=== PATIENT | female | born 1980 | race African-American/Black ===

== ENCOUNTER 2017-05-06 12:44 | Emergency (ER) | payer OTHER ==
[~2017-05-06] VITALS: Ht 170.2 cm; Wt 81.7 kg
[~2017-05-06 12:44] MED LIST: FLEXERIL PO; NORCO 5-325 TA1 EACH PO
[2017-05-06] MEDS ORDERED: ONDANSETRON HCL4 M2 PO (13:32)
[2017-05-06] MEDS ORDERED: PREDNISONE 20 M20 MG PO (13:32)
[2017-05-06] MEDS ORDERED: PENICILLIN V P500 MG PO (13:32)
[2017-05-06 15:36] VITALS: BP 122/101
== END 2017-05-06 15:37 | disposition home or self-care (01) ==
LOC: ER 12:44
DX: J02.0 Streptococcal pharyngitis (principal); R51 Headache; R11.2 Nausea with vomiting, unspecified; Z86.718 Personal history of other venous thrombosis and embolism

== ENCOUNTER 2017-08-04 15:09 | Inpatient (IN) | payer OTHER ==
[~2017-08-04] VITALS: Ht 170.2 cm; Wt 117.7 kg
--- NOTE | ~2017-08-04 | HC ---
[facility] [place] [address] CONSULTATION Name: SHELBY WALKER Room #: 416-P [facility] IN M.R.#: [id number] Admission: 08/04/17 Attend Phys: Femi Phillips MD Discharge: 08/06/17 Date of : 78 Report #: [id number] THIS REPORT FOR: //name// CC: BETTY physician/PCP Femi Phillips DATE OF SERVICE: 08/04/2017 HISTORY OF PRESENT ILLNESS: This is a 37-year-old female patient who was evaluated by me for any neurological etiology for the pain behind left eye. This started this morning. She does not have a history of migraine. At one time, looks like her eye was bloodshot. Nurses have noticed some ptosis, but when I examined it was better. She was also having low potassium. REVIEW OF SYSTEMS: Indicate that this patient does not have a history of migraine. She does not have a history of stroke as I understand from the nurses and the patient. They checked intraocular downstairs and they were unremarkable. She does not believe she is under stress. She is getting . She had some stomach issues in the past, she does not know what the diagnosis was. That was the relevant 14-point review of system. PAST MEDICAL HISTORY: Negative for migraine. FAMILY HISTORY: Negative for any early age stroke. PHYSICAL EXAMINATION: Indicate that she is alert, responsive, able to follow simple and complex command. Her speech looks unremarkable. Cranial nerve examination does look ptosis, but on both sides, but pupils are not dilated. Strength looks symmetrical. There is no meningeal sign. She had complained of some neck pain. Cardiac examination is unremarkable. Respiratory examination is unremarkable. Blood pressure has never been that high and the highest was 150/96. LABORATORY DATA: A CT was reviewed and that was unremarkable as per study I can pull out the film. IMPRESSION: This patient presented with eye pain. They have also noticed ptosis. We need to exclude the possibility of an aneurysm in this patient. If that is excluded, then we can consider the possibility of migraine since glaucoma has been excluded. This is only as per history. She does have low potassium, but that will not explain all her symptoms. RECOMMENDATION: I had a long talk with the patient. I told her that we should go ahead and do a CT angio of the head and neck tonight. I will order that. I discussed the procedure, its indication, potential complication, and alternatives. If she has an aneurysm, then we will manage accordingly. If not, [facility] [address] [place] [address] CONSULTATION Name: SHELBY WALKER Room #: 416-P [facility] IN [facility].#: [id number] Admission: 08/04/17 Attend Phys: Femi Phillips MD Discharge: 08/06/17 Date of : 78 Report #: [id number] then we will await the MRI and sed rate in the morning and go from there. All of it was discussed with the patient and the patient wants to follow this plan. Thank you very much for this referral. <ELECTRONICALLY SIGNED> By: Eleazar Santoyo MD 08/06/17 2208 2318 1439 Eleazar Santoyo MD /nt
--- NOTE | ~2017-08-04 | 2DMMODE ---
[facility] [address] [place] [address] 2 D/M-MODE ECHOCARDIOGRAM Name: SHELBY WALKER Room #: 353-P [facility] IN M.R.#: [id number] Admission: 08/04/17 Attend Phys: Femi Phillips, Discharge: Date of : 78 Date of Service: 08/05/17 0857 Report #: [id number] THIS REPORT FOR: //name// APPROVED REPORT Study performed: 08/05/2017 08:18:07 EXAM: Comprehensive 2D, Doppler, and color-flow Echocardiogram Patient Location: Echo lab Room #: 353 Status: routine BSA: 2.26 HR: 86 bpm BP: 152/97 mmHg Rhythm: NSR Other Information Study Quality: Adequate Indications Left arm weakness, HTN Echo Enhancing Agent Indication: Rule out Shunt Agent(s) / Amount(s) Used: Agitated Saline 6 cc 2D Dimensions RVDd: 38.95 mm LVEF(%): 71.78 (>50%) IVSd: 9.59 (7-11mm) LVOT Diam: 21.45 (18-24mm) LVDd: 45.99 mm PWd: 9.42 (7-11mm) Ascending Ao: 28.93 (22-36mm) LVDs: 27.18 (25-40mm) Aortic Root: 30.74 mm Hansen's LVEF: 71.78 % Volumes Left Atrial Volume (Systole) Single Plane 4CH: 29.65 mL Single Plane 2CH: 49.40 mL LA ESV Index: 18.00 mL/m2 Aortic Valve AoV Peak Chay.: 1.39 m/s AO Peak Gr.: 7.73 mmHg LVOT Max P.21 mmHg LVOT Max V: 1.03 m/s NÉSTOR Vmax: 2.66 cm2 [facility] [place] [address] 2 D/M-MODE ECHOCARDIOGRAM Name: SHELBY WALKER Room #: 353-P [facility] IN M.R.#: [id number] Admission: 08/04/17 Attend Phys: Femi Phillpis, Discharge: Date of : 78 Date of Service: 08/05/17 0857 Report #: [id number] Mitral Valve E/A Ratio: 1.1 MV Decel. Time: 161.50 ms MV E Max Chay.: 0.71 m/s MV A Chay.: 0.63 m/s MV PHT: 46.84 ms IVRT: 65.74 ms Pulmonary Valve PV Peak Chay.: 1.24 m/s PV Peak Gr.: 6.16 mmHg Pulmonary Vein P Vein S: 0.40 m/s P Vein D: 0.40 m/s P Vein S/D Ratio: 1.00 Tricuspid Valve TR Peak Chay.: 2.93 m/s RAP Estimate: 5.00 mmHg TR Peak Gr.: 34.25 mmHg PA Pressure: 39.00 mmHg Left Ventricle The left ventricle is normal size. There is normal LV segmental wall motion. There is normal left ventricular wall thickness. Left ventricular systolic function is normal. LVEF is 60-65%. Moderate diastolic dysfunction is present (pseudonormal filling). Right Ventricle The right ventricle is normal size. The right ventricular systolic function is normal. Atria The left atrium size is normal. No shunting noted by contrast bubble injection. Right atrium is mildly dilated. Aortic Valve The aortic valve is normal in structure. No aortic regurgitation is present. There is no aortic valvular stenosis. Mitral Valve The mitral valve is normal in structure. There is no mitral valve regurgitation noted. No evidence of mitral valve stenosis. Tricuspid Valve The tricuspid valve is normal in structure. Moderate tricuspid [facility] [address] [place] [address] 2 D/M-MODE ECHOCARDIOGRAM Name: SHELBY WALKER Room #: 353-P [facility] IN [facility]#: [id number] Admission: 08/04/17 Attend Phys: Femi Phillips, Discharge: Date of : 78 Date of Service: 08/05/17 0857 Report #: [id number] regurgitation. Estimated PAP is 40mmHg. Pulmonic Valve The pulmonary valve is normal in structure. Trace pulmonic regurgitation. Great Vessels The aortic root is normal in size. The ascending aorta is normal in size. IVC is normal in size and collapses >50% with inspiration. Pericardium There is no pericardial effusion. <Conclusion> The left ventricle is normal size. LVEF is 60-65%. The aortic valve is normal in structure. The mitral valve is normal in structure. The tricuspid valve is normal in structure. Moderate tricuspid regurgitation. Estimated PAP is 40mmHg. The pulmonary valve is normal in structure. Trace pulmonic regurgitation. There is no pericardial effusion. No shunting noted by contrast bubble injection. <ELECTRONICALLY SIGNED> By: Saroj Thomson MD 08/05/17 0857 0857 0857 Saroj Thomson MD /INF
--- NOTE | ~2017-08-04 | EKG ---
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
[~2017-08-04 15:09] MED LIST changes: +ONDANSETRON HCL4 M2 PO; +PENICILLIN V P500 MG PO; +PREDNISONE 20 M20 MG PO
[2017-08-04 15:17] VITALS: BP 150/96
[2017-08-04] MEDS ORDERED: [UNRECOGNIZED DRUG - REMARK] (15:23)
[2017-08-04 16:23] LABS: URINE BILIRUBIN NEGATIVE (Negative); URINE BLOOD NEGATIVE (Negative); URINE CLARITY SL CLOUDY; URINE COLOR YELLOW; URINE GLUCOSE-RANDOM* NEGATIVE (Negative); URINE KETONES NEGATIVE (Negative); URINE LEUKOCYTES NEGATIVE (Negative); URINE NITRITE NEGATIVE (Negative); URINE PROTEIN (DIPSTICK) NEGATIVE (Negative); URINE UROBILINOGEN 0.2 E.U./dl (0.2-1.0)
[2017-08-04 17:03] LABS: ABSOLUTE NEUTROPHILS 2.8 thou/uL (1.4-8.2); BASOPHILS 0.9 % (0.0-2.0); EOSINOPHILS 2.2 % (0.0-3.0); HEMATOCRIT 37.8 % (37.0-47.0); HEMOGLOBIN 13.3 gm/dL (12.0-15.0); LYMPHOCYTES 41.5 % (24.0-44.0); MCH 33.2 pg (26.0-34.0); MCHC 35.2 g/dL (28.0-37.0); MCV 94.2 fL (80.0-100.0); PLATELET COUNT 284 thou/uL (150-400); POLYS 46.4 % (36.0-66.0); RBC 4.02 mil/uL (4.20-5.00); RDW 11.6 % (10.5-14.5); WBC 5.9 thou/uL (4.0-11.0)
[2017-08-04 17:12] LABS: CALCIUM 8.8 mg/dL (8.5-10.1); CREATININE 0.7 mg/dL (0.6-1.0)
[2017-08-04 17:14] LABS: POTASSIUM 2.5 mmol/L (3.5-5.1)
[2017-08-04 17:19] LABS: PROTIME 10.2 Seconds (9.3-11.4)
[2017-08-04 17:22] LABS: TOTAL BILIRUBIN 0.3 mg/dL (<0.1-1.0)
[2017-08-04 17:23] LABS: ALBUMIN 3.5 g/dL (3.4-5.0); TOTAL PROTEIN 7.7 g/dL (6.4-8.2)
[2017-08-04 17:52] LABS: MAGNESIUM 1.9 mg/dL (1.8-2.4); PHOSPHORUS 3.6 mg/dL (2.5-4.9)
[2017-08-04 18:04] VITALS: BP 121/75
[2017-08-04 18:25] VITALS: BP 124/84
[2017-08-04 18:38] VITALS: BP 140/86
[2017-08-04 23:49] VITALS: BP 135/87
[2017-08-05 04:11] VITALS: BP 150/90
[2017-08-05 05:05] LABS: HEMATOCRIT 36.9 % (37.0-47.0); HEMOGLOBIN 12.5 gm/dL (12.0-15.0); MCH 32.6 pg (26.0-34.0); MCHC 33.9 g/dL (28.0-37.0); RBC 3.84 mil/uL (4.20-5.00); RDW 11.9 % (10.5-14.5); WBC 5.3 thou/uL (4.0-11.0)
[2017-08-05 05:06] LABS: CALCIUM 8.2 mg/dL (8.5-10.1); CREATININE 0.7 mg/dL (0.6-1.0); MAGNESIUM 1.8 mg/dL (1.8-2.4); POTASSIUM 3.4 mmol/L (3.5-5.1)
[2017-08-05 05:36] LABS: TSH 2.792 uIU/mL (0.358-3.740)
[2017-08-05 07:46] VITALS: BP 152/97
[2017-08-05 11:43] VITALS: BP 127/70
[2017-08-05 18:30] LABS: MAGNESIUM 2.1 mg/dL (1.8-2.4); POTASSIUM 3.4 mmol/L (3.5-5.1)
[2017-08-05 20:10] VITALS: BP 136/88
[2017-08-06] VITALS (7 sets, daily range): BP systolic 115–137; BP diastolic 56–98
[2017-08-06 06:50] LABS: CALCIUM 8.2 mg/dL (8.5-10.1); CREATININE 0.5 mg/dL (0.6-1.0); MAGNESIUM 2.2 mg/dL (1.8-2.4)
[2017-08-06 06:51] LABS: POTASSIUM 4.7 mmol/L (3.5-5.1)
[2017-08-06 07:13] LABS: ABSOLUTE NEUTROPHILS 2.6 thou/uL (1.4-8.2); BASOPHILS 0.6 % (0.0-2.0); EOSINOPHILS 2.2 % (0.0-3.0); HEMATOCRIT 38.6 % (37.0-47.0); MCH 32.7 pg (26.0-34.0); MCHC 33.6 g/dL (28.0-37.0); MCV 97.4 fL (80.0-100.0); MONOCYTES 10.1 % (1.0-8.0); PLATELET COUNT 257 thou/uL (150-400); POLYS 48.1 % (36.0-66.0); RBC 3.97 mil/uL (4.20-5.00); RDW 12.3 % (10.5-14.5); WBC 5.3 thou/uL (4.0-11.0)
[2017-08-06 10:06] LABS: APTT 27.3 Seconds (24.5-32.8); PROTIME 9.8 Seconds (9.3-11.4)
[2017-08-06 13:24] LABS: CSF GLUCOSE 60 mg/dL (40-70); CSF PROTEIN 28 mg/dL (15-45)
[2017-08-06 13:34] LABS: VOLUME 11 ml
[2017-08-06 13:36] LABS: CSF WBC 1 /mm3 (0-10)
[2017-08-06 13:40] LABS: CSF RBC 370 /mm3
[2017-08-06] MEDS ORDERED: LISINOPRIL5 MG PO (15:06)
[2017-08-06] MEDS ORDERED: ASPIRIN81 M2 PO (15:06)
[2017-08-08 19:07] LABS: ANA INTERPRETATION Negative (())
== END 2017-08-06 18:04 | disposition home or self-care (01) | DRG 641 ==
LOC: ER 15:09 → 4N 17:27 → EROBS 17:27 → 3W 18:25 → 4N 08-06 04:03 → ENTRNSPT 08-06 17:58 → 4N 08-06 18:04
PROVIDERS: Hospitalist; Internal Medicine; Physician Assistant; Psychiatry & Neurology Neuromuscular Medicine
DX: E87.6 Hypokalemia (principal); I50.30 Unspecified diastolic (congestive) heart failure; H02.402 Unspecified ptosis of left eyelid; G93.2 Benign intracranial hypertension; E86.0 Dehydration; I11.0 Hypertensive heart disease with heart failure; T50.2X5A Adverse effect of carbonic-anhydrase inhibitors, benzothiadiazides and other diuretics, initial encounter; Z86.718 Personal history of other venous thrombosis and embolism; Y92.89 Other specified places as the place of occurrence of the external cause
CPT/HCPCS: 10879

== ENCOUNTER 2017-09-01 08:11 | Emergency (ER) | payer OTHER ==
[~2017-09-01] VITALS: Ht 170.2 cm; Wt 108.9 kg
[~2017-09-01 08:11] MED LIST changes: +ASPIRIN81 M2 PO; +LISINOPRIL5 MG PO; +[UNRECOGNIZED DRUG - REMARK]
[2017-09-01 09:08] LABS: ABSOLUTE NEUTROPHILS 1.5 thou/uL (1.4-8.2); EOSINOPHILS 3.3 % (0.0-3.0); HEMATOCRIT 39.4 % (37.0-47.0); HEMOGLOBIN 13.3 gm/dL (12.0-15.0); LYMPHOCYTES 45.2 % (24.0-44.0); MCH 32.9 pg (26.0-34.0); MCHC 33.8 g/dL (28.0-37.0); MCV 97.1 fL (80.0-100.0); MONOCYTES 9.6 % (1.0-8.0); PLATELET COUNT 339 thou/uL (150-400); POLYS 40.9 % (36.0-66.0); RBC 4.06 mil/uL (4.20-5.00); WBC 3.7 thou/uL (4.0-11.0)
[2017-09-01 09:14] LABS: ANION GAP 10 mmol/L (7-16); BUN 9 mg/dL (7-18); CALCIUM 8.5 mg/dL (8.5-10.1); CHLORIDE 106 mmol/L (98-107); CO2 23 mmol/L (21-32); CREATININE 0.7 mg/dL (0.6-1.0); GLUCOSE 115 mg/dL (74-106); POTASSIUM 3.5 mmol/L (3.5-5.1); SODIUM 139 mmol/L (136-145)
[2017-09-01 09:20] LABS: ALBUMIN 3.2 g/dL (3.4-5.0); DIRECT BILIRUBIN < 0.1 mg/dL (<0.1-0.3); LIPASE 86 U/L (73-393); SGOT 14 U/L (15-37); SGPT 16 U/L (30-65); TOTAL BILIRUBIN 0.2 mg/dL (<0.1-1.0); TOTAL PROTEIN 7.3 g/dL (6.4-8.2)
[2017-09-01] MEDS ORDERED: KEFLEX500 M1 PO (10:00)
[2017-09-01] MEDS ORDERED: ZOFRAN ODT4 MG PO (10:00)
== END 2017-09-01 13:15 | disposition home or self-care (01) ==
LOC: ER 08:11
PROVIDERS: Emergency Medicine
DX: L02.31 Cutaneous abscess of buttock (principal); R11.2 Nausea with vomiting, unspecified; R10.9 Unspecified abdominal pain; Z86.718 Personal history of other venous thrombosis and embolism

== ENCOUNTER 2017-09-26 22:12 | Emergency (ER) | payer OTHER ==
[~2017-09-26] VITALS: Ht 170.2 cm; Wt 108.9 kg
[~2017-09-26 22:12] MED LIST changes: +KEFLEX500 M1 PO; +ZOFRAN ODT4 MG PO
[2017-09-26 23:25] LABS: URINE BILIRUBIN NEGATIVE (Negative); URINE BLOOD NEGATIVE (Negative); URINE COLOR YELLOW; URINE GLUCOSE-RANDOM* NEGATIVE (Negative); URINE KETONES NEGATIVE (Negative); URINE LEUKOCYTES-REFLEX NEGATIVE (Negative); URINE NITRITE-REFLEX NEGATIVE (Negative); URINE PROTEIN (DIPSTICK) NEGATIVE (Negative); URINE SPECIFIC GRAVITY 1.015 (1.005-1.035); URINE UROBILINOGEN 0.2 E.U./dl (0.2-1.0)
[2017-09-26 23:30] LABS: URINE CLARITY SL CLOUDY
[2017-09-27 00:23] LABS: HEMATOCRIT 38.3 % (37.0-47.0); HEMOGLOBIN 13.3 gm/dL (12.0-15.0); MCH 33.5 pg (26.0-34.0); MCHC 34.7 g/dL (28.0-37.0); MCV 96.6 fL (80.0-100.0); PLATELET COUNT 299 thou/uL (150-400); RBC 3.97 mil/uL (4.20-5.00); RDW 12.7 % (10.5-14.5); WBC 5.4 thou/uL (4.0-11.0)
[2017-09-27 00:36] LABS: CALCIUM 8.4 mg/dL (8.5-10.1); CREATININE 0.7 mg/dL (0.6-1.0); POTASSIUM 3.4 mmol/L (3.5-5.1)
[2017-09-27 00:42] LABS: ALBUMIN 3.5 g/dL (3.4-5.0); TOTAL BILIRUBIN 0.3 mg/dL (<0.1-1.0); TOTAL PROTEIN 7.8 g/dL (6.4-8.2)
[2017-09-27] MEDS ORDERED: BENTYL 20 MG TA20 M1 PO (01:00)
[2017-09-27] MEDS ORDERED: NORCO 5-325 TA1 EACH PO (01:00)
[2017-09-27] MEDS ORDERED: LISINOPRIL5 MG PO (01:02)
[2017-09-27 01:16] LABS: ABSOLUTE NEUTROPHILS 1.3 thou/uL (1.4-8.2)
== END 2017-09-27 01:15 | disposition home or self-care (01) ==
LOC: ER 22:12
PROVIDERS: Emergency Medicine
DX: R10.84 Generalized abdominal pain (principal); R19.7 Diarrhea, unspecified; R51 Headache; I10 Essential (primary) hypertension

== ENCOUNTER 2017-10-24 20:50 | Emergency (ER) | payer OTHER ==
[~2017-10-24] VITALS: Ht 170.2 cm; Wt 113.4 kg
[~2017-10-24 20:50] MED LIST changes: +BENTYL 20 MG TA20 M1 PO
[2017-10-24] MEDS ORDERED: KEFLEX500 M1 PO (21:33)
[2017-10-24] MEDS ORDERED: MOBIC15 MG PO (21:33)
== END 2017-10-24 21:39 | disposition home or self-care (01) ==
LOC: ER 20:50
DX: L02.412 Cutaneous abscess of left axilla (principal); L02.411 Cutaneous abscess of right axilla; I10 Essential (primary) hypertension; Z90.2 Acquired absence of lung [part of]; Z86.718 Personal history of other venous thrombosis and embolism

== ENCOUNTER 2018-01-08 19:51 | Emergency (ER) | payer OTHER ==
[~2018-01-08] VITALS: Ht 170.2 cm; Wt 113.4 kg
[~2018-01-08 19:51] MED LIST changes: +MOBIC15 MG PO
[2018-01-08] MEDS ORDERED: TYLENOL EXTRA500 MG PO (20:08)
[2018-01-08 20:53] LABS: URINE BILIRUBIN NEGATIVE (Negative); URINE BLOOD TRACE (Negative); URINE CLARITY CLEAR; URINE COLOR YELLOW; URINE GLUCOSE-RANDOM* NEGATIVE (Negative); URINE KETONES NEGATIVE (Negative); URINE LEUKOCYTES-REFLEX NEGATIVE (Negative); URINE NITRITE-REFLEX NEGATIVE (Negative); URINE PROTEIN (DIPSTICK) NEGATIVE (Negative); URINE SPECIFIC GRAVITY >= 1.030 (1.005-1.035); URINE UROBILINOGEN 0.2 E.U./dl (0.2-1.0)
[2018-01-08 20:59] LABS: HEMATOCRIT 38.8 % (37.0-47.0); HEMOGLOBIN 13.1 gm/dL (12.0-15.0); MCH 32.5 pg (26.0-34.0); MCHC 33.7 g/dL (28.0-37.0); MCV 96.5 fL (80.0-100.0); RBC 4.02 mil/uL (4.20-5.00); RDW 12.5 % (10.5-14.5); WBC 6.1 thou/uL (4.0-11.0)
[2018-01-08 21:08] LABS: CREATININE 0.9 mg/dL (0.6-1.0); POTASSIUM 3.6 mmol/L (3.5-5.1)
[2018-01-08 21:14] LABS: ALBUMIN 3.2 g/dL (3.4-5.0); TOTAL BILIRUBIN 0.1 mg/dL (<0.1-1.0); TOTAL PROTEIN 7.5 g/dL (6.4-8.2)
== END 2018-01-08 22:09 | disposition home or self-care (01) ==
LOC: ER 19:51
PROVIDERS: Emergency Medicine; Physician Assistant
DX: R51 Headache (principal); R42 Dizziness and giddiness; I10 Essential (primary) hypertension; Z86.718 Personal history of other venous thrombosis and embolism

== ENCOUNTER 2018-02-03 18:21 | Emergency (ER) | payer OTHER ==
[~2018-02-03] VITALS: Ht 170.2 cm; Wt 119.3 kg
--- NOTE | ~2018-02-03 | EKG ---
[place] [address] [facility] [place] [address] ELECTROCARDIOGRAM REPORT Name: PERFECTOSHELBY [facility] [id number] Admission: 02/03/18 Attend Phys: Discharge: 02/03/18 Date of : 78 Report #: [id number] THIS REPORT FOR: //name// [facility] ED Test Date: 2018-02-03 Test Time: 18:24:44 Pat Name: SHELBY GROVE Department: Room: Gender: F Sap Basis: STEPHANIE : 1980 Requested By: Ursula Brewer Order Number: [id number] MD: Nilesh Mtz Measurements Intervals [place] Rate: 79 P: 28 NV: 156 QRS: 23 QRSD: 91 T: 8 QT: 370 QTc: 425 Interpretive Statements Sinus rhythm No significant abnormality Compared to ECG 08/04/2017 15:57:09 No significant changes Electronically Signed On 02-04-2018 7:56:41 CDT by Nilesh Mtz [email or web address] <ELECTRONICALLY SIGNED> By: Nilesh Mtz MD, [facility] 02/04/18 0756 1824 1824 Nilesh Mtz MD, FACC /EPI
[~2018-02-03 18:21] MED LIST changes: +TYLENOL EXTRA500 MG PO
[2018-02-03 19:35] LABS: ABSOLUTE NEUTROPHILS 2.8 thou/uL (1.4-8.2); BASOPHILS 0.8 % (0.0-2.0); EOSINOPHILS 2.9 % (0.0-3.0); HEMATOCRIT 41.4 % (37.0-47.0); HEMOGLOBIN 14.4 gm/dL (12.0-15.0); LYMPHOCYTES 46.9 % (24.0-44.0); MCH 33.2 pg (26.0-34.0); MCHC 34.7 g/dL (28.0-37.0); MCV 95.6 fL (80.0-100.0); MONOCYTES 9.2 % (1.0-8.0); PLATELET COUNT 299 thou/uL (150-400); POLYS 40.2 % (36.0-66.0); RBC 4.33 mil/uL (4.20-5.00); RDW 12.5 % (10.5-14.5)
[2018-02-03 19:39] LABS: ANION GAP 7 mmol/L (7-16); BUN 6 mg/dL (7-18); CHLORIDE 102 mmol/L (98-107); CO2 26 mmol/L (21-32); CREATININE 0.7 mg/dL (0.6-1.0); GLUCOSE 91 mg/dL (74-106); POTASSIUM 3.7 mmol/L (3.5-5.1); SODIUM 135 mmol/L (136-145)
[2018-02-03 19:47] LABS: TROPONIN-I <0.06 ng/mL (<0.06)
[2018-02-03] MEDS ORDERED: HYDROCHLOROTHIA25 M2 PO (21:27)
[2018-02-03] MEDS ORDERED: K-DUR 20 MEQ T20 MEQ PO (21:32)
== END 2018-02-03 21:50 | disposition home or self-care (01) ==
LOC: ER 18:21
PROVIDERS: Emergency Medicine
DX: R07.89 Other chest pain (principal); I10 Essential (primary) hypertension; Z86.718 Personal history of other venous thrombosis and embolism; Z86.711 Personal history of pulmonary embolism

== ENCOUNTER 2018-02-07 09:39 | Emergency (ER) | payer OTHER ==
[~2018-02-07] VITALS: Ht 170.2 cm; Wt 117.9 kg
[~2018-02-07 09:39] MED LIST changes: +HYDROCHLOROTHIA25 M2 PO; +K-DUR 20 MEQ T20 MEQ PO
[2018-02-07] MEDS ORDERED: ULTRAM 50MG TAB50 MG PO (11:03)
[2018-02-07] MEDS ORDERED: CRUTCHES MISCELL (11:04)
[2018-02-07 14:08] VITALS: BP 142/93
== END 2018-02-07 11:30 | disposition home or self-care (01) ==
LOC: ER 09:39
DX: S93.401A Sprain of unspecified ligament of right ankle, initial encounter (principal); I10 Essential (primary) hypertension; Z86.718 Personal history of other venous thrombosis and embolism; Z86.711 Personal history of pulmonary embolism; W01.0XXA Fall on same level from slipping, tripping and stumbling without subsequent striking against object, initial encounter; Y93.89 Activity, other specified; Y92.89 Other specified places as the place of occurrence of the external cause; Y99.8 Other external cause status

== ENCOUNTER 2018-02-12 18:18 | Emergency (ER) | payer OTHER ==
[~2018-02-12] VITALS: Ht 170.2 cm; Wt 115.7 kg
[~2018-02-12 18:18] MED LIST changes: +CRUTCHES MISCELL; +ULTRAM 50MG TAB50 MG PO
[2018-02-12 19:35] LABS: ABSOLUTE NEUTROPHILS 2.6 thou/uL (1.4-8.2); BASOPHILS 1.1 % (0.0-2.0); EOSINOPHILS 2.2 % (0.0-3.0); HEMATOCRIT 40.5 % (37.0-47.0); HEMOGLOBIN 13.6 gm/dL (12.0-15.0); LYMPHOCYTES 49.3 % (24.0-44.0); MCH 32.5 pg (26.0-34.0); MCHC 33.5 g/dL (28.0-37.0); MCV 96.8 fL (80.0-100.0); PLATELET COUNT 318 thou/uL (150-400); POLYS 35.4 % (36.0-66.0); RBC 4.19 mil/uL (4.20-5.00); RDW 12.6 % (10.5-14.5); WBC 7.8 thou/uL (4.0-11.0)
[2018-02-12 19:44] LABS: APTT 20.8 Seconds (24.5-32.8); CALCIUM 9.2 mg/dL (8.5-10.1); CREATININE 0.6 mg/dL (0.6-1.0)
[2018-02-12 19:49] LABS: ALBUMIN 3.2 g/dL (3.4-5.0); TOTAL BILIRUBIN 0.3 mg/dL (<0.1-1.0); TOTAL PROTEIN 7.9 g/dL (6.4-8.2)
[2018-02-12] MEDS ORDERED: PRILOSEC 20 MG20 MG PO (20:11)
[2018-02-12] MEDS ORDERED: ANUSOL-HC25 MG RECTAL (20:18)
[2018-02-12] MEDS ORDERED: TRAMADOL 50 MG50 MG PO (20:38)
[2018-02-12 20:46] VITALS: BP 114/70
== END 2018-02-12 20:46 | disposition home or self-care (01) ==
LOC: ER 18:18
PROVIDERS: Emergency Medicine
DX: K62.5 Hemorrhage of anus and rectum (principal); S93.491A Sprain of other ligament of right ankle, initial encounter; I10 Essential (primary) hypertension; Z87.11 Personal history of peptic ulcer disease; Z86.718 Personal history of other venous thrombosis and embolism; Z98.890 Other specified postprocedural states; W18.39XA Other fall on same level, initial encounter; Y92.89 Other specified places as the place of occurrence of the external cause; Y93.89 Activity, other specified; Y99.8 Other external cause status

== ENCOUNTER 2018-05-29 21:59 | Emergency (ER) | payer OTHER ==
[~2018-05-29] VITALS: Ht 170.2 cm; Wt 122.5 kg
[~2018-05-29 21:59] MED LIST changes: +ANUSOL-HC25 MG RECTAL; +PRILOSEC 20 MG20 MG PO; +TRAMADOL 50 MG50 MG PO
[2018-05-29] MEDS ORDERED: NORVASC5 MG PO (22:06)
[2018-05-29 22:37] LABS: BASOPHILS 0.6 % (0.0-2.0); EOSINOPHILS 2.2 % (0.0-3.0); HEMOGLOBIN 13.5 gm/dL (12.0-15.0); LYMPHOCYTES 42.8 % (24.0-44.0); MCH 33.2 pg (26.0-34.0); MCHC 34.6 g/dL (28.0-37.0); MONOCYTES 8.8 % (1.0-8.0); PLATELET COUNT 298 thou/uL (150-400); POLYS 45.6 % (36.0-66.0); RBC 4.06 mil/uL (4.20-5.00); RDW 12.5 % (10.5-14.5); WBC 6.5 thou/uL (4.0-11.0)
[2018-05-29 22:46] LABS: ANION GAP 11 mmol/L (7-16); BUN 10 mg/dL (7-18); CHLORIDE 102 mmol/L (98-107); CO2 26 mmol/L (21-32); CREATININE 0.7 mg/dL (0.6-1.0); GLUCOSE 116 mg/dL (74-106); POTASSIUM 3.3 mmol/L (3.5-5.1); SODIUM 139 mmol/L (136-145)
[2018-05-29 22:53] LABS: APTT 26.8 Seconds (24.5-32.8); D-DIMER 0.19 ug/mLFEU (0.19-0.50); PROTIME 10.3 Seconds (9.3-11.4)
[2018-05-29 22:54] LABS: ALBUMIN 3.2 g/dL (3.4-5.0); LIPASE 84 U/L (73-393); MAGNESIUM 1.9 mg/dL (1.8-2.4); SGOT 14 U/L (15-37); SGPT 19 U/L (30-65); TOTAL BILIRUBIN 0.2 mg/dL (<0.1-1.0); TOTAL PROTEIN 8.1 g/dL (6.4-8.2); TROPONIN-I <0.06 ng/mL (<0.06)
[2018-05-29] MEDS ORDERED: NAPROSYN500 MG PO (23:19)
[2018-05-29] MEDS ORDERED: NORFLEX100 MG PO (23:19)
[2018-05-29 23:50] VITALS: BP 137/83
--- NOTE | 2018-05-30 08:10 | EKG ---
[place] [address] [place] [address] ELECTROCARDIOGRAM REPORT Name: PERFECTOSHELBY [facility] [id number] ������������������ Admission: 05/29/18 ������������������ Attend Phys: Discharge: 05/29/18 ������������������ Date of : 78 Report #: [id number] ����������������������������������������������������������������� [id number] THIS REPORT FOR: //name// [facility] ED Test Date: 2018-05-29 Test Time: 22:15:46 Pat Name: SHELBY GROVE Department: Room: Gender: F Yard Switcher: maliaprakashvivi : 1980 Requested By: Carter Graham Order Number: [id number] MD: Nilesh Mtz Measurements Intervals [place] Rate: 76 P: 25 IN: 174 QRS: 15 QRSD: 98 T: 4 QT: 389 QTc: 438 Interpretive Statements Sinus rhythm Borderline T abnormalities, anterior leads Compared to ECG 02/03/2018 18:24:44 T-wave abnormality now present Electronically Signed On 05-30-2018 8:10:43 USER EXPERIENCE DEVELOPER by Nilesh Mtz [email or web address] ��������������������������������������������� <ELECTRONICALLY SIGNED> ���������������������������������������� By: Nilesh Mtz MD, [facility] ��������������������������������������������� 05/30/18 0810 2215 14 Nilesh Mtz MD, FACC /EPI
== END 2018-05-29 23:52 | disposition home or self-care (01) ==
LOC: ER 21:59
PROVIDERS: Emergency Medicine
DX: M43.6 Torticollis (principal); Z86.711 Personal history of pulmonary embolism; I10 Essential (primary) hypertension

== ENCOUNTER 2018-10-15 18:38 | Emergency (ER) | payer OTHER ==
[~2018-10-15] VITALS: Ht 170.2 cm; Wt 123.8 kg
[~2018-10-15 18:38] MED LIST changes: +NAPROSYN500 MG PO; +NORFLEX100 MG PO; +NORVASC5 MG PO
[2018-10-15 19:47] VITALS: BP 112/64
== END 2018-10-15 19:47 | disposition home or self-care (01) ==
LOC: ER 18:38
DX: R59.0 Localized enlarged lymph nodes (principal); I10 Essential (primary) hypertension; Z86.718 Personal history of other venous thrombosis and embolism; Z90.710 Acquired absence of both cervix and uterus

== ENCOUNTER 2019-01-31 09:46 | Emergency (ER) | payer OTHER ==
[~2019-01-31] VITALS: Ht 170.2 cm; Wt 117.9 kg
[2019-01-31 09:47] VITALS: BP 137/98
[2019-01-31] MEDS ORDERED: IBUPROFEN 800800 M1 PO (11:15)
[2019-01-31] MEDS ORDERED: NORFLEX100 MG PO (11:15)
== END 2019-01-31 11:30 | disposition home or self-care (01) ==
LOC: ER 09:46
DX: S46.912A Strain of unspecified muscle, fascia and tendon at shoulder and upper arm level, left arm, initial encounter (principal); I10 Essential (primary) hypertension; Z86.718 Personal history of other venous thrombosis and embolism; Z86.711 Personal history of pulmonary embolism; X58.XXXA Exposure to other specified factors, initial encounter; Y93.89 Activity, other specified; Y92.89 Other specified places as the place of occurrence of the external cause; Y99.8 Other external cause status

== ENCOUNTER 2019-05-06 05:58 | Day surgery (SDC) | payer OTHER ==
[~2019-05-06] VITALS: Ht 170.2 cm; Wt 121.6 kg
[~2019-05-06 05:58] MED LIST changes: +IBUPROFEN 800800 M1 PO
[2019-05-06] MEDS ORDERED: LISINOPRIL-HCT1 EAC1 PO ×2 (08:49)
[2019-05-06] MEDS ORDERED: LASIX 40 MG TAB40 MG PO ×2 (08:50)
[2019-05-06] MEDS ORDERED: LIPITOR 20 MG T20 M1 PO ×2 (08:51)
[2019-05-06 08:52] VITALS: BP 142/90
[2019-05-06 10:22] VITALS: BP 142/90
[2019-05-06] MEDS ORDERED: CYCLOBENZAPRINE10 MG PO (20:53)
--- NOTE | 2019-05-07 15:06 | O ---
[address] [address] OPERATIVE REPORT Name: SHELBY GROVE Room #: DEP [facility].#: [id number] Admission: 05/06/19 Attend Phys: Paul Kearns MD Discharge: 05/06/19 Date of : 78 Report #: [id number] THIS REPORT FOR: //name// CC: FAM unknown Paul Kearns DATE OF SERVICE: 05/06/2019 SERVICE: Orthopedics. FACILITY: [facility]. SURGEON: Paul Kearns MD COLOR CHECKER: Symone Silva NP. INDICATION FOR COLOR CHECKER: Extremity positioning, suture and arthroscope management, assistance with repair. PREOPERATIVE DIAGNOSES: 1. Work-related injury, left shoulder. 2. Left shoulder pain. 3. Left shoulder labral tear. POSTOPERATIVE DIAGNOSES: 1. Work-related injury, left shoulder. 2. Left shoulder pain. 3. Left shoulder labral tear. 4. Left shoulder articular cartilage lesion of the anterior inferior glenoid. PROCEDURES: 1. Left shoulder arthroscopic anterior labral repair. 2. Left shoulder extensive arthroscopic debridement. COMPLICATIONS: None. DRAINS: None. SPECIMENS: None. ANESTHESIA: General with regional. FINDINGS: 1. Intact humeral articular cartilage as well as rotator cuff and biceps tendon. 2. Flap tear of the anterior inferior glenoid with the articular cartilage [address] [address] OPERATIVE REPORT Name: SHELBY GROVE Room #: DEP [facility]#: [id number] Admission: 05/06/19 Attend Phys: Paul Kearns MD Discharge: 05/06/19 Date of : 78 Report #: [id number] component. This was pedunculated and was attached to the inferior glenoid and had a loose flap that was being pinched between the humeral head and glenoid. There was anterior labral tearing with synovitis present as well. POSTOPERATIVE PLAN: 3 weeks of sling immobilization followed by physical therapy for mobilization. HISTORY: The patient is a 38-year-old young lady who injured her left shoulder at work moving a piece of furniture. She presented to the office with significant pain that had failed conservative measures. She had an MRI arthrogram, which showed a flap tear of the inferior glenoid labrum with some associated articular cartilage lesions. She was indicated for surgical treatment. Risks, benefits, alternatives, and indication of surgery discussed with her in detail. Risks include but not limited to pain, bleeding, infection, injury to nerves or blood vessels, persistent pain despite surgical intervention, failure of any repairs, progression of any preexisting chondral injury, need for further surgery as well as complications related to anesthesia such as stroke, heart attack, pulmonary complications, thromboembolic disease, and . She does have a history of PE. We discussed this specifically as well as her cardiac history. PROCEDURE IN DETAIL: After left upper extremity was correctly identified in preoperative holding area as the operative extremity, the patient was taken to the operating room where general anesthesia was induced without complications. She was padded appropriately. Prophylactic antibiotics were administered at appropriate time. The patient had undergone a single shot regional nerve block by Anesthesia. She was turned into lateral decubitus position, left side up, right side down padded appropriately. Examination under anesthesia demonstrated generally a stable shoulder. There was some crepitus. Left arm was prepped and draped in standard sterile fashion. Timeout procedure performed. Standard posterior viewing portal was established. Diagnostic arthroscopy revealed the above findings. There was obviously a flap tear of the anterior labrum. A low anterior interval portal was established followed by a high interval viewing portal. We used a shaver to debride the anterior inferior posteriorly of the frayed labrum and the articular cartilage, which was in the anterior inferior quadrant and was a grade 3 with partial thickness loss of the cartilage, but there was no exposed bone. The elevator was used to mobilize the anterior labrum at the side of the tear and then the large flap tear was grasped and removed and a truncated at its base and discarded. The Mar[employer] anchor x 2 were then placed with a mattress suture type of repair to keep the knot off of the glenoid face, providing good anatomic latter day of the labral positioning. A shaver was then used to complete a debridement of the labrum and cartilage. Scope was then placed in subacromial space where a bursectomy was performed. [address] [address] OPERATIVE REPORT Name: SHELBY GROVE Room #: DEP [facility].#: [id number] Admission: 05/06/19 Attend Phys: Paul Kearns MD Discharge: 05/06/19 Date of : 78 Report #: [id number] The rotator cuff was normal as was the coracoacromial ligament. After the bursectomy was completed, final photographs were taken. Instruments were removed. Portal sites were closed. Sterile dressing was applied followed by abduction pillow sling and [employer]. The patient was awakened from anesthesia and taken to recovery room in stable condition. No complications. All counts were correct. <ELECTRONICALLY SIGNED> By: Paul Kearns MD 05/07/19 1506 0948 1004 Paul Kearns MD /nt
== END 2019-05-06 11:00 | disposition home or self-care (01) ==
LOC: OR 05:58 → TBA 06:47 → OR 11:00
DX: M25.512 Pain in left shoulder (principal); S49.92XA Unspecified injury of left shoulder and upper arm, initial encounter; S43.492A Other sprain of left shoulder joint, initial encounter; M24.112 Other articular cartilage disorders, left shoulder; I11.0 Hypertensive heart disease with heart failure; I50.30 Unspecified diastolic (congestive) heart failure; Z87.19 Personal history of other diseases of the digestive system; Z98.890 Other specified postprocedural states; Z79.899 Other long term (current) drug therapy; Z90.710 Acquired absence of both cervix and uterus; Y99.0 Civilian activity done for income or pay; Y93.89 Activity, other specified; Y92.89 Other specified places as the place of occurrence of the external cause
CPT/HCPCS: 50010; 50101; 50172; 50386; 50417; 50935; 51320; 52001; 52282; 53610; 54170; 55430; 56524; 56525; 56527; 57103; 62110; 62900; 64039; 70005

== ENCOUNTER 2019-05-06 18:33 | Emergency (ER) | payer OTHER ==
[~2019-05-06] VITALS: Ht 170.2 cm; Wt 120.2 kg
--- NOTE | ~2019-05-06 | EKG ---
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
[~2019-05-06 18:33] MED LIST changes: +LASIX 40 MG TAB40 MG PO; +LIPITOR 20 MG T20 M1 PO; +LISINOPRIL-HCT1 EAC1 PO
[2019-05-06 20:27] LABS: ABSOLUTE NEUTROPHILS 6.6 thou/uL (1.4-8.2); BASOPHILS 0.3 % (0.0-2.0); EOSINOPHILS 0.1 % (0.0-3.0); HEMATOCRIT 38.8 % (37.0-47.0); HEMOGLOBIN 12.9 gm/dL (12.0-15.0); LYMPHOCYTES 15.5 % (24.0-44.0); MCH 32.2 pg (26.0-34.0); MCHC 33.3 g/dL (28.0-37.0); MCV 96.7 fL (80.0-100.0); MONOCYTES 1.3 % (1.0-8.0); PLATELET COUNT 323 thou/uL (150-400); POLYS 82.8 % (36.0-66.0); RBC 4.01 mil/uL (4.20-5.00); RDW 12.7 % (10.5-14.5); WBC 7.9 thou/uL (4.0-11.0)
[2019-05-06 20:37] LABS: ANION GAP 6 mmol/L (7-16); BUN 5 mg/dL (7-18); CALCIUM 8.5 mg/dL (8.5-10.1); CHLORIDE 103 mmol/L (98-107); CO2 26 mmol/L (21-32); CREATININE 0.8 mg/dL (0.6-1.0); GLUCOSE 176 mg/dL (74-106); POTASSIUM 3.5 mmol/L (3.5-5.1); SODIUM 135 mmol/L (136-145)
[2019-05-06 20:47] LABS: ALBUMIN 3.3 g/dL (3.4-5.0); SGOT 13 U/L (15-37); SGPT 24 U/L (30-65); TOTAL BILIRUBIN 0.2 mg/dL (<0.1-1.0); TOTAL PROTEIN 8.2 g/dL (6.4-8.2); TROPONIN-I <0.06 ng/mL (<0.06)
[2019-05-06] MEDS ORDERED: CYCLOBENZAPRINE10 MG PO (20:53)
[2019-05-06 22:39] VITALS: BP 112/70
== END 2019-05-06 22:40 | disposition home or self-care (01) ==
LOC: ER 18:33
PROVIDERS: Student in an Organized Health Care Education/Training Program
DX: T88.59XA Other complications of anesthesia, initial encounter (principal); I10 Essential (primary) hypertension; E66.9 Obesity, unspecified; Z86.718 Personal history of other venous thrombosis and embolism; T41.45XA Adverse effect of unspecified anesthetic, initial encounter; Y92.89 Other specified places as the place of occurrence of the external cause

== ENCOUNTER 2019-05-14 01:04 | Emergency (ER) | payer OTHER ==
[~2019-05-14] VITALS: Ht 170.2 cm; Wt 120.2 kg
[~2019-05-14 01:04] MED LIST changes: +CYCLOBENZAPRINE10 MG PO
[2019-05-14] MEDS ORDERED: OXYCODONE PO (01:11)
[2019-05-14] MEDS ORDERED: MORPHINE SULFAT10 M2 PO (01:11)
[2019-05-14] MEDS ORDERED: COLACE100 MG PO (01:12)
[2019-05-14] MEDS ORDERED: ONDANSETRON HCL4 M3 PO (01:12)
[2019-05-14 02:34] LABS: CALCIUM 8.6 mg/dL (8.5-10.1); CREATININE 0.6 mg/dL (0.6-1.0); POTASSIUM 3.5 mmol/L (3.5-5.1)
[2019-05-14 02:58] LABS: ABSOLUTE NEUTROPHILS 4.3 thou/uL (1.4-8.2); BASOPHILS 0.4 % (0.0-2.0); EOSINOPHILS 1.6 % (0.0-3.0); HEMATOCRIT 37.8 % (37.0-47.0); HEMOGLOBIN 12.5 gm/dL (12.0-15.0); LYMPHOCYTES 37.9 % (24.0-44.0); MCHC 33.2 g/dL (28.0-37.0); MCV 96.5 fL (80.0-100.0); MONOCYTES 9.4 % (1.0-8.0); PLATELET COUNT 317 thou/uL (150-400); POLYS 50.7 % (36.0-66.0); RBC 3.92 mil/uL (4.20-5.00); RDW 12.4 % (10.5-14.5); WBC 8.5 thou/uL (4.0-11.0)
[2019-05-14 04:44] VITALS: BP 122/69
== END 2019-05-14 04:48 | disposition home or self-care (01) ==
LOC: ER 01:04
PROVIDERS: Emergency Medicine
DX: R42 Dizziness and giddiness (principal); R11.2 Nausea with vomiting, unspecified; I10 Essential (primary) hypertension; Z86.718 Personal history of other venous thrombosis and embolism

== ENCOUNTER 2019-07-17 10:16 | Emergency (ER) | payer OTHER ==
[~2019-07-17] VITALS: Ht 170.2 cm; Wt 120.2 kg
[~2019-07-17 10:16] MED LIST changes: +COLACE100 MG PO; +MORPHINE SULFAT10 M2 PO; +ONDANSETRON HCL4 M3 PO; +OXYCODONE PO
[2019-07-17 12:43] LABS: ABSOLUTE NEUTROPHILS 2.1 thou/uL (1.4-8.2); BASOPHILS 0.8 % (0.0-2.0); EOSINOPHILS 3.3 % (0.0-3.0); HEMATOCRIT 38.9 % (37.0-47.0); HEMOGLOBIN 13.1 gm/dL (12.0-15.0); LYMPHOCYTES 45.3 % (24.0-44.0); MCH 33.1 pg (26.0-34.0); MCHC 33.8 g/dL (28.0-37.0); MCV 97.9 fL (80.0-100.0); MONOCYTES 11.7 % (1.0-8.0); PLATELET COUNT 283 thou/uL (150-400); POLYS 38.9 % (36.0-66.0); RBC 3.97 mil/uL (4.20-5.00); RDW 12.4 % (10.5-14.5); WBC 5.3 thou/uL (4.0-11.0)
[2019-07-17 12:51] LABS: ANION GAP 10 mmol/L (7-16); BUN 10 mg/dL (7-18); CALCIUM 9.2 mg/dL (8.5-10.1); CHLORIDE 102 mmol/L (98-107); CO2 26 mmol/L (21-32); CREATININE 0.7 mg/dL (0.6-1.0); GLUCOSE 94 mg/dL (74-106); POTASSIUM 3.5 mmol/L (3.5-5.1); SODIUM 138 mmol/L (136-145)
[2019-07-17 13:01] LABS: ALBUMIN 3.4 g/dL (3.4-5.0); SGOT 13 U/L (15-37); SGPT 17 U/L (30-65); TOTAL BILIRUBIN 0.4 mg/dL (<0.1-1.0); TOTAL PROTEIN 7.9 g/dL (6.4-8.2); TROPONIN-I <0.06 ng/mL (<0.06)
[2019-07-17 13:50] VITALS: BP 125/79
--- NOTE | 2019-07-19 13:01 | EKG ---
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: [facility] : 1980 Requested By: Olinda Mae Order Number: [id number] MD: Zi Alcantara Measurements Intervals [place] Rate: 77 P: 36 ID: 175 QRS: 30 QRSD: 95 T: 27 QT: 377 QTc: 427 Interpretive Statements Sinus rhythm Consider left atrial enlargement Baseline wander in lead(s) V3 Compared to ECG 05/06/2019 18:49:07 T-wave abnormality no longer present Electronically Signed On 07-19-2019 12:59:34 CDT by Zi Alcantara [email or web address] <ELECTRONICALLY SIGNED> By: Zi Alcantara MD 07/19/19 1259 1136 1136 Zi Alcantara MD /EPI
== END 2019-07-17 13:51 | disposition home or self-care (01) ==
LOC: ER 10:16
PROVIDERS: Student in an Organized Health Care Education/Training Program
DX: R06.02 Shortness of breath (principal); R05 Cough; R07.9 Chest pain, unspecified; J02.9 Acute pharyngitis, unspecified; I10 Essential (primary) hypertension; Z03.818 Encounter for observation for suspected exposure to other biological agents ruled out; Z86.718 Personal history of other venous thrombosis and embolism; Z79.899 Other long term (current) drug therapy

== ENCOUNTER 2019-12-04 14:23 | Emergency (ER) | payer OTHER ==
[~2019-12-04] VITALS: Ht 170.2 cm; Wt 117.9 kg
[2019-12-04] MEDS ORDERED: ULTRAM50 MG PO (15:01)
[2019-12-04 15:39] LABS: ABSOLUTE NEUTROPHILS 2.2 thou/uL (1.4-8.2); BASOPHILS 0.8 % (0.0-2.0); EOSINOPHILS 2.1 % (0.0-3.0); HEMOGLOBIN 13.3 gm/dL (12.0-15.0); LYMPHOCYTES 47.5 % (24.0-44.0); MCH 33.5 pg (26.0-34.0); MCHC 34.9 g/dL (28.0-37.0); MCV 96.1 fL (80.0-100.0); MONOCYTES 10.2 % (1.0-8.0); PLATELET COUNT 288 thou/uL (150-400); POLYS 39.4 % (36.0-66.0); RBC 3.96 mil/uL (4.20-5.00); RDW 12.9 % (10.5-14.5); WBC 5.5 thou/uL (4.0-11.0)
[2019-12-04 16:03] LABS: ANION GAP 10 mmol/L (7-16); BUN 10 mg/dL (7-18); CALCIUM 8.9 mg/dL (8.5-10.1); CHLORIDE 103 mmol/L (98-107); CO2 25 mmol/L (21-32); CREATININE 0.9 mg/dL (0.6-1.0); GLUCOSE 91 mg/dL (74-106); POTASSIUM 3.4 mmol/L (3.5-5.1); SODIUM 138 mmol/L (136-145)
[2019-12-04 16:13] LABS: TROPONIN-I <0.06 ng/mL (<0.06)
--- NOTE | 2019-12-04 16:50 | EKG ---
[facility] [place] [address] ELECTROCARDIOGRAM REPORT Name: ANTONIO GROVEI Room #: [facility]#: [id number] Admission: 12/04/19 Attend Phys: Discharge: Date of : 78 Report #: [id number] THIS REPORT FOR: cc: BETTY - Blanca family physician/PCP BETTY - Blanca family physician/PCP Nilesh Mtz MD [facility] ~ THIS REPORT FOR: //name// [facility] ED Test Date: 2019-12-04 Test Time: 15:00:22 Pat Name: SHELBY GROVE Department: Room: Gender: F Medical Resident: [facility] : 1980 Requested By: Georgia Stewart Order Number: [id number] MD: Nilesh Mtz Measurements Intervals [place] Rate: 61 P: 10 [place]: 175 QRS: 17 QRSD: 100 T: 1 QT: 405 QTc: 408 Interpretive Statements Sinus rhythm Normal tracing Compared to ECG 07/17/2019 11:36:59 No significant change was found Electronically Signed On 12-04-2019 16:50:25 CDT by Nilesh Mtz [email or web address] <ELECTRONICALLY SIGNED> By: Nilesh Mtz MD, [facility] 12/04/19 1650 1500 1500 Nilesh Mtz MD, [facility] /EPI
[2019-12-04] MEDS ORDERED: HYDROCODON-ACE1 EAC7 PO (17:57)
[2019-12-04 18:44] VITALS: BP 124/55
== END 2019-12-04 18:47 | disposition home or self-care (01) ==
LOC: ER 14:23
PROVIDERS: Nurse Practitioner
DX: R10.31 Right lower quadrant pain (principal); R07.89 Other chest pain; I10 Essential (primary) hypertension; Z86.73 Personal history of transient ischemic attack (TIA), and cerebral infarction without residual deficits; Z79.899 Other long term (current) drug therapy; Z20.828 Contact with and (suspected) exposure to other viral communicable diseases

== ENCOUNTER 2020-04-02 15:33 | Emergency (ER) | payer OTHER ==
[~2020-04-02] VITALS: Ht 170.2 cm; Wt 120.2 kg
[~2020-04-02 15:33] MED LIST changes: +HYDROCODON-ACE1 EAC7 PO; +ULTRAM50 MG PO
[2020-04-02 15:45] VITALS: BP 149/91
[2020-04-02] MEDS ORDERED: ERYTHROMYCIN E3.5 G3 OPHTHALMIC (16:39)
== END 2020-04-02 16:45 | disposition home or self-care (01) ==
LOC: ER 15:33
DX: H10.9 Unspecified conjunctivitis (principal); I10 Essential (primary) hypertension; Z98.890 Other specified postprocedural states; Z86.718 Personal history of other venous thrombosis and embolism; Z79.899 Other long term (current) drug therapy

== ENCOUNTER 2021-02-14 17:56 | Emergency (ER) | payer OTHER ==
[~2021-02-14] VITALS: Ht 170.2 cm; Wt 129.3 kg
[~2021-02-14 17:56] MED LIST changes: +ERYTHROMYCIN E3.5 G3 OPHTHALMIC
[2021-02-14 18:18] LABS: ABSOLUTE NEUTROPHILS 2.2 thou/uL (1.4-8.2); HEMATOCRIT 37.4 % (37.0-47.0); HEMOGLOBIN 12.7 gm/dL (12.0-15.0); LYMPHOCYTES 48.7 % (24.0-44.0); MCH 33.3 pg (26.0-34.0); MCHC 34.1 g/dL (28.0-37.0); MCV 97.7 fL (80.0-100.0); MONOCYTES 11.3 % (1.0-8.0); PLATELET COUNT 282 thou/uL (150-400); RBC 3.83 mil/uL (4.20-5.00); RDW 12.6 % (10.5-14.5); WBC 6.2 thou/uL (4.0-11.0)
[2021-02-14 18:26] LABS: ANION GAP 5 mmol/L (7-16); BUN 11 mg/dL (7-18); CALCIUM 8.7 mg/dL (8.5-10.1); CHLORIDE 108 mmol/L (98-107); CO2 27 mmol/L (21-32); CREATININE 0.8 mg/dL (0.6-1.0); GLUCOSE 91 mg/dL (74-106); POTASSIUM 4.2 mmol/L (3.5-5.1); SODIUM 140 mmol/L (136-145)
[2021-02-14 18:36] LABS: ALBUMIN 3.3 g/dL (3.4-5.0); SGOT 16 U/L (15-37); SGPT 20 U/L (14-59); TOTAL BILIRUBIN 0.2 mg/dL (0.2-1.0); TOTAL PROTEIN 7.6 g/dL (6.4-8.2)
[2021-02-14 18:40] LABS: URINE BILIRUBIN NEGATIVE (Negative); URINE BLOOD NEGATIVE (Negative); URINE CLARITY CLEAR; URINE COLOR YELLOW; URINE GLUCOSE-RANDOM* NEGATIVE (Negative); URINE KETONES NEGATIVE (Negative); URINE LEUKOCYTES-REFLEX NEGATIVE (Negative); URINE NITRITE-REFLEX NEGATIVE (Negative); URINE PROTEIN (DIPSTICK) NEGATIVE (Negative); URINE SPECIFIC GRAVITY >= 1.030 (1.005-1.035); URINE UROBILINOGEN 0.2 E.U./dl (0.2-1.0)
[2021-02-14 19:30] VITALS: BP 138/96
--- NOTE | 2021-02-15 07:11 | EKG ---
[address] [place] [address] ELECTROCARDIOGRAM REPORT Name: SHELBY GROVE Room #: [facility]#: [id number] Admission: 02/14/21 Attend Phys: Discharge: 02/14/21 Date of : 78 Report #: [id number] [facility] ED Test Date: 2021-02-14 Test Time: 18:07:42 Pat Name: SHELBY GROVE Department: Room: Gender: F Automobile Parker: CLAUDINE : 1980 Requested By: Twin Clark Order Number: [id number] MD: Candido Adame Measurements Intervals [place] Rate: 69 P: 27 AR: 170 QRS: 30 QRSD: 97 T: 21 QT: 396 QTc: 425 Interpretive Statements Sinus rhythm Compared to ECG 12/04/2019 15:00:22 No significant changes Electronically Signed On 02-15-2021 7:10:44 SCIENTIFIC RESEARCH ASSOCIATE by Candido Adame [email or web address] <ELECTRONICALLY SIGNED> By: Candido Adame MD, [facility] 02/15/21 0710 1807 1807 Candido Adame MD, FACC /EPI
== END 2021-02-14 19:30 | disposition home or self-care (01) ==
LOC: ER 17:56
PROVIDERS: Emergency Medicine
DX: R07.89 Other chest pain (principal); I10 Essential (primary) hypertension; E78.00 Pure hypercholesterolemia, unspecified; Z98.890 Other specified postprocedural states; Z86.718 Personal history of other venous thrombosis and embolism; Z79.891 Long term (current) use of opiate analgesic; Z79.899 Other long term (current) drug therapy

== ENCOUNTER 2021-04-03 14:56 | Emergency (ER) | payer OTHER ==
[~2021-04-03] VITALS: Ht 170.2 cm; Wt 127.0 kg
[2021-04-03 16:01] LABS: ABSOLUTE NEUTROPHILS 2.1 thou/uL (1.4-8.2); BASOPHILS 0.3 % (0.0-2.0); EOSINOPHILS 1.6 % (0.0-3.0); HEMOGLOBIN 13.8 gm/dL (12.0-15.0); LYMPHOCYTES 39.6 % (24.0-44.0); MCH 32.6 pg (26.0-34.0); MCV 98.9 fL (80.0-100.0); MONOCYTES 10.4 % (1.0-8.0); PLATELET COUNT 300 thou/uL (150-400); POLYS 48.1 % (36.0-66.0); RBC 4.24 mil/uL (4.20-5.00); RDW 12.3 % (10.5-14.5); WBC 4.3 thou/uL (4.0-11.0)
[2021-04-03 16:09] LABS: CALCIUM 8.8 mg/dL (8.5-10.1); CREATININE 0.7 mg/dL (0.6-1.0); POTASSIUM 3.6 mmol/L (3.5-5.1)
[2021-04-03 16:15] LABS: ALBUMIN 3.4 g/dL (3.4-5.0); TOTAL BILIRUBIN 0.4 mg/dL (0.2-1.0); TOTAL PROTEIN 8.2 g/dL (6.4-8.2)
[2021-04-03] MEDS ORDERED: ZPAK PO (17:35)
[2021-04-03 18:32] VITALS: BP 141/89
--- NOTE | 2021-04-04 10:23 | EKG ---
[place] [address] [facility] [place] [employer] [place] [address] ELECTROCARDIOGRAM REPORT Name: SHELBY GROVE [facility]: [facility] [id number] Admission: 04/03/21 Attend Phys: Discharge: 04/03/21 Date of : 78 Report #: [id number] [facility] ED Test Date: 2021-04-03 Test Time: 15:44:58 Pat Name: SHELBY GROVE Department: Room: Gender: F Medical Pathologist: : 1980 Requested By: Lien Hong Order Number: [id number] MD: Candido Adame Measurements Intervals [place] Rate: 95 P: 24 [place]: 160 QRS: 19 QRSD: 92 T: -14 QT: 347 QTc: 436 Interpretive Statements Sinus rhythm Nonspecific T abnormalities, diffuse leads Baseline wander in lead(s) V1 Compared to ECG 02/14/2021 18:07:42 T-wave abnormality now present Electronically Signed On 04-04-2021 10:23:22 CAN DRAGGER by Candido Adame [email or web address] <ELECTRONICALLY SIGNED> By: Candido Adame MD, [facility] 04/04/21 1023 1544 1544 Candido Adame MD, FACC /EPI
== END 2021-04-03 18:32 | disposition home or self-care (01) ==
LOC: ER 14:56
PROVIDERS: Emergency Medicine
DX: U07.1 COVID-19 (principal); I10 Essential (primary) hypertension; Z86.718 Personal history of other venous thrombosis and embolism; Z98.890 Other specified postprocedural states; Z79.899 Other long term (current) drug therapy; Z88.8 Allergy status to other drugs, medicaments and biological substances